=== PATIENT | male | born 1935 | race Caucasian/White ===

== ENCOUNTER 2016-11-16 08:52 | Emergency (ER) | payer MEDICARE, OTHER ==
[~2016-11-16] VITALS: Ht 175.3 cm; Wt 130.0 kg
[~2016-11-16 08:52] MED LIST: ANDROGEL1 % TD; ATENOLOL100 MG OR; ATENOLOL25 MG OR; DOXAZOSIN8 MG OR; GARLIC1250 MG OR; GLUCOVANC1 OR; HYDROCHLOROT25 MG OR; JANTOVEN1 MG OR; JANUVIA100 MG OR; L-ARGININE500 M1 OR; LOTREL 5/101 CAP OR; LOTREL1 CA1 OR; NAPROSYN250 MG OR; SAW PALMETTO450 MG OR; ZINC50 MG OR
[2016-11-16 09:55] LABS: HEMATOCRIT 27.9 % (39.0-50.0); HEMOGLOBIN 8.9 g/dl (14.0-18.0); MEAN CELL VOLUME 89.4 fL CALC (80.0-100.0); MEAN CORPUSCULAR HGB 28.5 pG CALC (26.0-32.0); MEAN CORPUSCULAR HGB CONC 31.9 g/L CALC (32.0-36.0); NEUT# 3.42 thou/uL (1.82-7.42); RED BLOOD COUNT 3.12 mill/uL (4.70-6.10); RED CELL DISTRI WIDTH 15.4 % (11.5-15.5)
[2016-11-16 10:19] LABS: ALBUMIN 3.8 g/dL (3.2-5.0); BILIRUBIN, TOTAL 0.4 mg/dL (0.0-1.4); CREATININE 3.8 mg/dL (0.7-1.3); TOTAL PROTEIN 6.4 g/dL (6.3-8.2)
[2016-11-16 10:30] LABS: POTASSIUM 5.7 mmol/l (3.5-5.1)
[2016-11-16 10:45] LABS: URINE BILIRUBIN - DIPSTICK NEGATIVE (NEGATIVE); URINE BLOOD DIPSTICK LARGE (NEGATIVE); URINE CLARITY BLOODY; URINE COLOR BLOODY; URINE GLUCOSE - DIPSTICK NEGATIVE (NEGATIVE); URINE KETONE NEGATIVE (NEGATIVE); URINE LEUK ESTERASE NEGATIVE (NEGATIVE); URINE NITRITE - DIPSTICK NEGATIVE (Negative); URINE PROTEIN - DIPSTICK 100 mg/dL (NEG-TRACE); URINE RBC TNTC RBC/hpf (0-5); URINE UROBILINOGEN - DIPSTICK 0.2 E.U./dL (0.2)
[2016-11-16 12:27] VITALS: BP 164/77
== END 2016-11-16 12:27 | disposition home or self-care (01) ==
LOC: ED 08:52
PROVIDERS: Emergency Medicine
DX: R31.9 Hematuria, unspecified (principal); E87.5 Hyperkalemia; N28.89 Other specified disorders of kidney and ureter; I10 Essential (primary) hypertension; E11.9 Type 2 diabetes mellitus without complications